=== PATIENT | female | born 1990 | race Caucasian/White ===

== ENCOUNTER 2021-05-25 17:39 | Emergency (ER) | payer BC, SELFPAY ==
--- NOTE | ~2021-05-25 | US_ITS ---
US OB <= 14 weeks fetus DATE: 05/25/2021 19:39 INDICATION: Vaginal bleeding in gravid patient TECHNIQUE: Real-time imaging and Doppler analysis COMPARISON: None FINDINGS: An intrauterine gestational sac is noted in the left lateral aspect of the septate or bicor nuate uterus. pole and yolk sac are identified. heart rate of 138 bpm. [place]-rump length of 1.36 cm is consistent with 7 weeks 4 days +/- 5 days estimated gestational age w ith JAYLON of 01/07/2024. There is an approximately 2.3 x 2.7 x 2.5 cm heterogeneous hypoechoic area subjacent to the gestation al sac inferiorly, which suggests a subchorionic hematoma. No pelvic mass lesion or abnormal pelvic fluid collection is detected.. 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 Reviewed, dictated and finalized at [facility]. 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
[2021-05-25 17:51] VITALS: BP 123/82; PULSE 86; RESP 20; TEMP 36.8; O2SAT 100
[2021-05-25 18:45] LABS: Basophils Absolute Auto 0.1 K/mm3 (0.0-0.1); Basophils Percent Auto 0.8 % (0.2-1.2); Eosinophils Absolute Auto 0.5 K/mm3 (0-0.3); Eosinophils Percent Auto 3.4 % (0-4.4); Hematocrit 39.1 % (37.0-47.0); Hemoglobin 12.7 g/dL (12.0-15.0); Immature Granulocyte Absolute 0.13 K/mm3 (0.00-0.031); Immature Granulocyte Percent A 0.9 % (0-0.5); Lymphocytes Absolute Auto 3.04 K/mm3 (0.9-3.2); Mean Corpuscular HGB Conc 32.5 g/dl (32-36); Mean Corpuscular Volume 92.2 fl (80-100); Mean Platelet Volume 10.4 fl (7.4-10.4); Monocytes Percent Auto 6.6 % (2.6-8.5); Neutrophils Absolute Auto 9.7 K/mm3 (1.3-6.7); Neutrophils Percent Auto 67.3 % (45.5-73.1); Platelet Count Result 254 k/mm3 (150-375); Red Blood Count 4.24 M/mm3 (4.2-5.4); Red Cell Distribution Width 13.1 % (11.5-14.5); White Blood Count 14.5 K/mm3 (4.5-10.0)
[2021-05-25 18:59] LABS: Partial Thromboplastin Time 25.2 SECONDS (22.3-36.8)
[2021-05-25 19:02] LABS: Alanine Aminotransferase 50 U/L (4-35); Albumin Level 4.2 g/dL (3.5-5.1); Alkaline Phosphatase 73 U/L (38-126); Anion Gap 9 mmol/L (8-16); Aspartate Amino Transferase 28 U/L (14-36); Bilirubin,Total 0.3 mg/dL (0.2-1.3); Blood Urea Nitrogen 9 mg/dL (7-17); Calcium 9.3 mg/dL (8.4-10.2); Carbon Dioxide 21 mmol/L (22-30); Chloride 107 mmol/L (98-107); Estimated CRCL calculation 136 ml/min; Estimated Glomerular Filt Rate > 60; Glucose 117 mg/dL (65-110); Potassium 3.6 mmol/L (3.4-5.0); Sodium 137 mmol/L (137-145)
[2021-05-25 19:04] LABS: Prothrombin Time 12.7 Seconds (11.1-14.7)
--- NOTE | 2021-05-25 19:07 | PC.NURSE ---
Patient report received from STACEY Aguirre. Assumed care of patient at this time.
--- NOTE | 2021-05-25 19:21 | ED.GENADULT ---
HPI - General Adult General Chief complaint: Vaginal Bleeding Stated complaint: bleeding, 7 weeks Time Seen by Provider: 05/25/21 17:44 Source: patient Mode of arrival: ambulatory Limitations: no limitations History of Present Illness HPI narrative: Patient is 7 weeks female G1, P0 with chief complaint of vaginal bleeding that began prior to arrival. Patient states that her bleeding is mild and accompanied by diffuse cramping. Patient states that she has ultrasound scheduled for this week but has not yet had a ultrasound confirming intrauterine . Patient denies any nausea, vomiting, fever, chills. Patient denies passing blood clots. Patient reports her has been normal prior to this. Patient denies having any health issues. Patient's LAND SALES AGENT is Mallory Zheng CNM at [facility]. Related Data Home Medications Medication Instructions Recorded Confirmed [id number] [id number] [id number] 1 pkg PO DAILY 05/25/21 05/25/21 [Daily ] Allergies Allergy/AdvReac Type Severity Reaction Status Date / Time No Known Allergies Allergy Verified 05/25/21 17:56 Review of Systems Review of Systems: CONSTITUTIONAL: Denies fever, chills, or sweats. EYES: Denies visual changes, redness, or discharge. ENT: Denies rhinorrhea, congestion, sore throat, or otalgia. CARDIOVASCULAR: Denies chest pain, palpitations, or edema. RESPIRATORY: Denies cough or dyspnea. GASTROINTESTINAL: Denies abdominal pain, nausea, vomiting, or diarrhea. GENITOURINARY: Reports vaginal bleeding and pelvic cramping denies dysuria or hematuria. SKIN: Denies rash or itching. MUSCULOSKELETAL: Denies back pain, joint pain, or myalgia. NEUROLOGIC: Denies headache, numbness, dizziness, or weakness. PSYCHIATRIC: Denies anxiety or depression. PMFSH Social History Social History Gender identity (if verbalized by the patient): Female Exam Narrative: GENERAL: Well-appearing, well-nourished, and in no acute distress. HEAD: Normocephalic, atraumatic. EYES: PERRLA and EOMI. NECK: Supple. Range of motion intact CHEST: Clear to auscultation. No respiratory distress. No wheezes rales or rhonchi HEART: Regular rate and rhythm. ABDOMEN: Soft, nontender, nondistended, normal active bowel sounds. PELVIC: Patient refused. EXTREMITIES: Normal range of motion. No edema. SKIN: Warm, dry, no rash. NEURO: No focal deficits. Alert and oriented x3. PSYCH: Normal mood and affect. Course Vital Signs Vital signs: Vital Signs Temperature 98.2 F 05/25/21 17:51 Pulse Rate 86 05/25/21 17:51 Respiratory Rate 20 05/25/21 17:51 Blood Pressure 123/82 05/25/21 17:51 Pulse Oximetry 100 05/25/21 17:51 Temperature 98.2 F 05/25/21 17:51 Pulse Rate 80 05/25/21 19:25 Respiratory Rate 18 05/25/21 19:25 Blood Pressure 121/67 05/25/21 19:25 Pulse Oximetry 100 05/25/21 19:25 Medical Decision Making MDM Narrative Medical decision making narrative: Patient states she is not having profuse bleeding. Patient is hemodynamically stable. Patient ultrasound is reassuring for live fetus presently. Patient still declines pelvic exam. We have been trying to contact patient's LAND SALES AGENT to inform her of the patient visit, ultrasound, labs etc. however we have been unable to make contact. Patient has been instructed of the importance of following up with her LAND SALES AGENT for lab rechecks and reultrasound. Patient verbalized understanding agreement with plan denies any other needs or concerns at this time. Differential Diagnosis Differential Diagnosis: Threatened miscarriage, subchorionic hemorrhage, active miscarriage Vital Signs Vital Signs: Vital Signs Temperature 98.2 F 05/25/21 17:51 Pulse Rate 86 05/25/21 17:51 Respiratory Rate 20 05/25/21 17:51 Blood Pressure 123/82 05/25/21 17:51 Pulse Oximetry 100 05/25/21 17:51 Temperature 98.2 F 05/25/21 17:51 Pulse Rate 80 05/25/21 19:25 Respiratory Ra
[2021-05-25 19:25] VITALS: BP 121/67; PULSE 80; RESP 18; O2SAT 100
--- NOTE | 2021-05-25 19:26 | PC.NURSE ---
Patient taken to US.
--- NOTE | 2021-05-25 20:22 | PC.NURSE ---
Patient given update and informed waiting for official report to come back for results. Patient stating she wants to leave and just go home, that hearing babies isn't the best thing for me right now. I want to know if I am miscarrying and that way I can just go home and mourn by myself. ER DANAY notified.
== END 2021-05-25 21:46 | disposition home or self-care (01) ==
PROVIDERS: Physician Assistant; Emergency Provider Emergency Medicine
DX: O46.8X1 Other antepartum hemorrhage, first trimester (principal); Z3A.01 Less than 8 weeks gestation of pregnancy
CPT/HCPCS: 36415; 76801; 80053; 84702; 85025; 85610; 85730; 86850; 86900; 86901; 99284